=== PATIENT | male | born 1970 | race Caucasian/White ===

== ENCOUNTER 2022-12-23 08:09 | Day surgery (SDC) | payer BC ==
[2022-12-20 12:17] VITALS: BMI 27.7
[2022-12-23] MEDS ORDERED: MIDAZOLAM HCL 2 MG/2 ML SINGLE DOSE VIAL ONE (08:10)
[2022-12-23] MEDS ORDERED: PROPOFOL 20 ML ONE ×2 (08:10→09:02)
[2022-12-23] MEDS ORDERED: LIDOCAINE HCL 2% (20ML MULTI-DOSE VIAL) ONE (08:11)
[2022-12-23] MEDS ORDERED: ceFAZolin SODIUM 1 GM VIAL ONE ×2 (09:06)
[2022-12-23 09:57] VITALS: PULSE 87; RESP 20; TEMP 97.1
[2022-12-23 10:22] VITALS: BP 113/68
== END 2022-12-23 10:35 | disposition home or self-care (01) ==
LOC: FASU 08:09
PROVIDERS: ATTEND Orthopaedic Surgery
PROC: 0LB80ZZ Excision of Left Hand Tendon, Open Approach (ICD-10-PCS; principal; 2022-12-23 09:06)
DX: M67.442 Ganglion, left hand (principal)
CPT/HCPCS: 88305-TC